=== PATIENT | male | born 1995 | race African-American/Black ===

== ENCOUNTER 2022-03-11 00:23 | Day surgery (SDC) | payer MEDICAID, SELFPAY ==
[2022-03-05 13:56] VITALS: BMI 25.9
--- NOTE | 2022-03-10 16:02 | PM.HPGS ---
History of Present Illness History of Present Illness Consent: Risks, benefits, and alternatives have been discussed and questions answered. Patient agrees to proceed with procedure. Chief complaint: N/V, hearburn Narrative: Dc Maurer is a 26 year old male who reports epigastric discomfort with nausea daily with intermittent episodes of vomiting. nausea and vomiting is worse in the a.m. ? Nausea usually improves several hours after being awake however will have intermittent episodes of nausea throughout the day that may only last for few minutes. He reports increased heartburn symptoms and chest burning when drinking alcohol, although he really drinks. symptoms improve when he took Prilosec OTC for 2 weeks. Review of Systems Review of Systems: All systems reviewed & are unremarkable except as noted in HPI and below PMFSH Past Medical History Medical History Lower abdominal pain Nausea & vomiting Social History Social History Smoking status: Never smoker Alcohol intake: current Alcohol use details: rarely Substance use: current Substance use type: marijuana Living arrangements: with family Spiritual care concerns: No Meds Home Medications and Allergies Home Medications Medication Instructions Recorded Confirmed Type alprazolam 1 mg tablet 1 mg PO DAILY 03/03/22 03/05/22 History dextroamphetamine-amphetamine 10 10 mg PO BID 03/03/22 03/05/22 History mg tablet (Adderall) omeprazole 20 mg capsule,delayed 20 mg PO DAILY 1 month #30 caps 03/03/22 03/05/22 Rx release oxcarbazepine 150 mg tablet 150 mg PO BID 03/03/22 03/05/22 History Allergies Allergy/AdvReac Type Severity Reaction Status Date / Time corn, wheat, soy, peanut, AdvReac Intermediate rash Uncoded 03/11/22 11:25 walnut Exam Const: General: alert Orientation/consciousness: patient oriented x3 Resp: Auscultation: clear to auscultation bilaterally Cardio: Rhythm: regular rhythm GI: GI Palp: Yes Soft to palpation and No Tenderness to palpation present (GI) Neuro: General: patient oriented x3 Assessment and Plan Assessment and plan (1) Nausea & vomiting: Code(s): R11.2 - Nausea with vomiting, unspecified Status: Acute Assessment and Plan: EGD with possible biopsy or dilatation or cautery.
[2022-03-11 11:27] VITALS: BP 108/57; PULSE 57; RESP 18; TEMP 36.2; O2SAT 100
[2022-03-11] MEDS: LACTATED RINGERS 1,000 ML 150 ML IV CONT (11:41)
--- NOTE | 2022-03-11 11:59 | P.PNAN_ITS ---
Anes - Initial Pre Proc Eval Procedure: Operation Date: 03/11/22 13:00 Proposed Procedures p Esophagogastroduodenoscopy EGD - Carmelo Olvera MD Date/Time: 03/11/22 11:59 Surgeon: Carmelo Olvera MD Pre Op Diagnosis: N/V, hearburn Patient Data Age: 26 Gender: M Height: 1.68 m Weight: 72 kg Last Vital Signs Temp 97.2 F L 03/11/22 11:27 Pulse 57 L 03/11/22 11:27 Resp 18 03/11/22 11:27 BP 108/57 L 03/11/22 11:27 Pulse Ox 100 03/11/22 11:27 O2 Del Method Room Air 03/11/22 11:27 Allergies Allergy/AdvReac Type Severity Reaction Status Date / Time corn, wheat, soy, peanut, AdvReac Intermediate rash Uncoded 03/11/22 11:25 walnut Home Medications Medication Instructions Recorded Confirmed Type alprazolam 1 mg tablet 1 mg PO DAILY 03/03/22 03/05/22 History dextroamphetamine-amphetamine 10 10 mg PO BID 03/03/22 03/05/22 History mg tablet (Adderall) omeprazole 20 mg capsule,delayed 20 mg PO DAILY 1 month #30 caps 03/03/22 03/05/22 Rx release oxcarbazepine 150 mg tablet 150 mg PO BID 03/03/22 03/05/22 History Patient hx anesthesia problems: none Family hx anesthesia problems: none Results Review: All pre-operative results and documents have been reviewed as part of the pre- operative evaluation. [facility] Past Medical History Medical History (Updated 03/03/22 @ 14:46 by SURYA Corcoran) Lower abdominal pain Nausea & vomiting Social History Social History Smoking status: Never smoker Alcohol intake: current Alcohol use details: rarely Substance use: current Substance use type: marijuana Living arrangements: with family Spiritual care concerns: No Anes - Eval Final PreProcedure Day of Procedure 03/11/22 11:59 Patient weight: normal Heart: regular rate and rhythm Lungs: clear to auscultation Airway: Mallampati scale class II Neurological: alert and oriented Last oral intake: >/= 8 hours ASA classification: II Emergent: no Anesthetic plan: proceed Anesthesia type and monitoring: general GIVS and standard monitoring Results Review: All pre-operative results and documents have been reviewed as part of the pre- operative evaluation. Informed Consent: The patient's anesthetic plan and its attendant risks and benefits were discussed with the patient/family/POA. Questions were solicited and answers provided to the satisfaction of the patient/family/POA.
[2022-03-11] MEDS: BENZOCAINE (*SP) 60 ML SPRAY CAN (HURRICAINE) 1 SPRAY MUCOUS MEM (12:25)
[2022-03-11 12:36] VITALS: BP 86/51; PULSE 56; RESP 21; O2SAT 98
[2022-03-11 12:46] VITALS: BP 97/62; PULSE 54; RESP 21; O2SAT 98
[2022-03-11 12:56] VITALS: BP 107/73; PULSE 52; RESP 13; O2SAT 100
== END 2022-03-11 13:46 | disposition home or self-care (01) ==
PROVIDERS: PCP Family Medicine; Visit Provider Internal Medicine Gastroenterology
PROC: 0DJ08ZZ Inspection of Upper Intestinal Tract, Via Natural or Artificial Opening Endoscopic (ICD-10-PCS; CPT 43235; principal; 2022-03-11 13:00)
DX: K31.84 Gastroparesis (principal)
CPT/HCPCS: 43239; 87081; 88305; J2704; J7120